=== PATIENT | male | born 1980 | race American Indian/Alaskan Native ===

== ENCOUNTER 2019-03-15 10:54 | Day surgery (SDC) | payer OTHER ==
--- NOTE | 2019-03-15 11:58 | Anesthesia Consultation ---
Anesthesia Consult and Med Hx Date of service: 03/15/19 - Airway Anesthetic Teeth Evaluation: Good ROM Head & Neck: Adequate Mental/Hyoid Distance: Adequate Mallampati Class: Class II Intubation Access Assessment: Good - Pulmonary Exam CTA: Yes - Cardiac Exam Cardiac Exam: RRR - Pre-Operative Health Status ASA Pre-Surgery Classification: ASA2 Proposed Anesthetic Plan: General (patient has SHAW on CPAP ) - Pulmonary Hx Smoking: No Hx Sleep Apnea: Yes (DX SLEEP APNEA WITH CPAP USE.) - Cardiovascular System Hx Hypertension: No - Central Nervous System Hx Back Pain: Yes (CHRONIC) - Endocrine Hx Hypothyroidism: Yes (ON DAILY MEDS) - Other Systems Hx Cancer: No
--- NOTE | 2019-03-15 11:59 | Anesthesia Day of Surgery ---
Anesthesia Day of Surgery - Day of Surgery Patient Examined: Yes Patient H&P Reviewed: Yes Patient is NPO: Yes
[2019-03-15] MEDS ORDERED: VERSED IV NR (12:30)
[2019-03-15] MEDS ORDERED: LACTATED RINGERS 1,000 ML IV SCH (12:30)
[2019-03-15] MEDS ORDERED: SUBLIMAZE ONE ×2 (12:44→14:58)
[2019-03-15] MEDS ORDERED: DIPRIVAN 10 MG/ML IV ONE (12:44)
[2019-03-15] MEDS ORDERED: ZOFRAN ONE ×2 (12:44→12:48)
[2019-03-15] MEDS ORDERED: XYLOCAINE MPF 2% ONE (12:49)
[2019-03-15] MEDS ORDERED: MARCAINE 0.25% INFILTRATI ONE ×4 (14:58→15:32)
[2019-03-15] MEDS ORDERED: ANCEF/STERILE WATER 2 GM/20 ML IV NR (15:00)
[2019-03-15] MEDS ORDERED: TRIPLE ANTIBIOTIC TP ONE ×2 (15:37→15:39)
[2019-03-15] MEDS ORDERED: TORADOL ONE (15:38)
[2019-03-15 16:35] VITALS: BP 105/60
--- NOTE | 2019-03-15 16:47 | Short Stay Summary ---
Short Stay Documentation Date of service: 03/15/19 - History H&P: obtained from office - Allergies and Medications Current Medications: Allergies No Known Allergies Allergy (Verified 03/03/19 10:47) Home Medications Medication Instructions Recorded Confirmed Last Taken Type Levothyroxine [Synthroid] 25 mcg PO QAM 03/03/19 03/15/19 03/14/19 07:00 History traMADol [Ultram] 50 mg PO Q4HR PRN 03/03/19 03/15/19 03/12/19 09:00 History Active Medications Cefazolin Sodium (Ancef/Sterile Water 2 Gm/20 Ml) 2 gm IV PREOP NR Stop: 03/15/19 23:59 Lactated Ringer's (Lactated Ringers) 1,000 mls @ 75 mls/hr IV DIRECT ANTHONY Last Admin: 03/15/19 12:30 Dose: 75 mls/hr Documented by: Midazolam HCl (Versed) 2 mg IV PREOP NR Stop: 03/15/19 20:00 Last Admin: 03/15/19 12:31 Dose: 2 mg Documented by: - Brief post op/procedure progress note Date of procedure: 03/15/19 Pre-op diagnosis: Voluntery Sterilization Post-op diagnosis: same Procedure: Vasectomy Anesthesia: GETA Findings: rt short and vas Surgeon: NICOLE GO Estimated blood loss: minimal Pathology: list (vas 2) Specimen disposition: to lab Condition: stable - Hospital course Hospital course: orpacuhome - Disposition Condition at discharge: Good Disposition: DC- TO HOME OR SELFCARE Short Stay Discharge Plan Activity: advance as tolerated Diet: advance as tolerated Follow up with: NICOLE GO MD [Staff Physician] - 7 Days Forms: Outpatient Surgery DC Inst.
--- NOTE | 2019-03-15 18:53 | Post Anesthesia Evaluation ---
- Post Anesthesia Evaluation Patient Participated: Yes Airway Patent: Yes Stable Respiratory Function: Yes Nausea/Vomiting: No Temp > 96.8F: Yes Pain Manageable: Yes Adequeate Hydration: Yes Anesthesia Complications: No Block Receding Appropriately: Not Applicable Patient on Ventilator: No
--- NOTE | 2019-03-22 12:37 | Operative Report ---
PREOPERATIVE DIAGNOSIS: Voluntary sterilization. POSTOPERATIVE DIAGNOSIS: Voluntary sterilization. PROCEDURE: Vasectomy. ANESTHESIA: General. FINDINGS: Right short vas. SURGEON: Volodymyr Cantor MD. ANESTHESIA: ____ PATHOLOGY: Vas x 2. CONDITION: Stable. CLINICAL INDICATIONS: Counseled RCBA, antibiotics, sequential compression devices. The patient understands limits and giving his anatomy and wanted to proceed. DESCRIPTION OF PROCEDURE: The patient was transferred to OR suite in supine position, anesthesia, dorsal anesthesia, placed in supine position, prepped and draped in standard fashion. At this point, attention was taken of the right hemiscrotum. A 1 cm incision made, dissected down to the pulled up the left vas. This was pulled out, clamped, dissected. About 1 cm segment was cut and removed. A clip and 0 Vicryl tie was placed on the proximal and distal end and then the distal end was pulled and sutured in a separate compartment with 3-0 Vicryl. Next, we pulled the right vas up. An identical procedure was done, cut a 1 cm segment out, tied a clip and a metal clip and suture of 0 Vicryl in the proximal end and same on the distal end with 4 areas of occlusion. Then, the distal tip was then in a separate compartment and that compartment was closed with 3-0 Vicryl. Next, these were placed into the dependent position. Next, two interrupted 3-0 chromic sutures were placed through the scrotal incision. Area was cleaned. Neosporin support. The patient awakened and transferred to PACU in good and stable condition. JOB# [id number] ATS/NTS
== END 2019-03-15 17:20 | disposition home or self-care (01) ==
LOC: OR 10:54
PROVIDERS: ATTEND Urology
DX: Z30.2 Encounter for sterilization (principal); G43.909 Migraine, unspecified, not intractable, without status migrainosus; E78.00 Pure hypercholesterolemia, unspecified; G47.30 Sleep apnea, unspecified; E03.9 Hypothyroidism, unspecified; F32.9 Major depressive disorder, single episode, unspecified; F41.9 Anxiety disorder, unspecified; Z98.890 Other specified postprocedural states; Z79.899 Other long term (current) drug therapy
CPT/HCPCS: 55250; 88302; J0690; J1885; J2250; J2405; J2704; J3010; J7120; A6250